=== PATIENT | male | born 1955 | race African-American/Black ===

== ENCOUNTER → 2016-10-22 | Outpatient (CLI) | payer OTHER ==
--- NOTE | 2016-10-22 14:20 | RAD ---
NONCONTRAST HEAD CT Clinical indications: Abnormal weight loss. Pneumonia. Headache. Technique: Noncontrast axial cross sectional scanning of the head was performed. PQRS Compliance Statement: One or more of the following individualized dose reduction techniques were utilized for this examination: 1. Automated exposure control 2. Adjustment of the mA and/or kV according to patient size 3. Use of iterative reconstruction technique Findings: No acute intracranial hemorrhage or midline shift or mass-effect or hydrocephalus or extra-axial fluid collection is seen. Mild periventricular white matter hypodensity is seen consistent with chronic small vessel ischemic disease in this age group. No skull fracture or pneumocephalus is seen. No opacification of the mastoid sinuses or the middle ear cavities or the paranasal sinuses is seen. The maxillary sinuses are not completely seen in this study. Impression: No acute intracranial hemorrhage is seen. No intracranial mass lesion is seen. Mild chronic small vessel ischemic disease of the white matter.
== END | disposition home or self-care (01) ==
LOC: CT 12:58
PROVIDERS: ATTEND Family Medicine
DX: G45.8 Other transient cerebral ischemic attacks and related syndromes (principal); R90.82 White matter disease, unspecified; J18.9 Pneumonia, unspecified organism
CPT/HCPCS: 70450